=== PATIENT | female | born 1950 | race Caucasian/White ===

== ENCOUNTER → 2016-07-16 | Outpatient (CLI) | payer MEDICARE, OTHER ==
[~2016-07-16] MED LIST: ASPIRIN PO; CALCITONIN; CARAFATE PO; CLARITIN10 MG PO; MIRALAX255 GM PO; PREVACID PO; PULMICORT; REGLAN PO; SINGULAIR PO; [UNRECOGNIZED DRUG - OTHER]; [UNRECOGNIZED DRUG - OTHER]
== END | disposition home or self-care (01) ==
LOC: CHAZ 01:52
DX: R05 Cough (principal)
CPT/HCPCS: 87070; 87205

== ENCOUNTER → 2016-08-08 | Outpatient (CLI) | payer MEDICARE, OTHER | END | disposition home or self-care (01) | LOC: CSSDAY 09:19 | DX: M81.0 Age-related osteoporosis without current pathological fracture (principal) | CPT/HCPCS: 96372; J0897 ==

== ENCOUNTER → 2016-09-29 | Outpatient (CLI) | payer MEDICARE, OTHER ==
--- NOTE | ~2016-09-29 | US17 ---
[facility] A Service of [facility] RADIOLOGY TEXT RESULTS PATIENT: ANAI KNIGHT LOCATION: [facility] : 54 UNIT #: [id number] AGE: [address]: AIDE MARTINEZ SEX: F ORDER DR: [id number] [facility] [address] [place], [place] [address] [id number] O MR#: [id number] Acc #: [id number] NAME: ANAI KNIGHT : 1950 SEX: F STUDY DATE/TIME: 09/29/2016 13:28 UNIT: [facility] ROOM: STUDY DESCRIPTION: US Breast Bilateral Attending Physician: Aide Martinez Referring Physician: Aide Martinez Primary Care Physician: Alex Barriga Sr., M.D. MEDICAL IMAGING REPORT This report is preliminary unless electronic signature is present EXAM Bilateral screening breast ultrasound. DATE 09/29/2016 HISTORY 65-year-old female [place] resident. Screening bilateral ultrasound requested, as the patient is unable to cooperate for a standard mammogram. COMPARISON Bilateral screening breast ultrasound, 03/09/2014. FINDINGS Sample images were obtained of the clock face of each breast for dedicated whole breast screening ultrasound procedure. No documented palpable abnormalities. I was present for targeted interrogation of the 12 o'clock axis of the left breast, during which time a 4 mm simple cyst is seen directly adjacent to a mildly prominent subareolar duct in the 12 o'clock axis. However, no intraductal lesions are identified. No intraductal debris is seen. No suspicious solid mass lesion is identified within either breast. No gross architectural distortion or microcalcification is evident. IMPRESSION BIRADS 2. Benign findings. There is mild left breast retroareolar ductal prominence, but no intraductal abnormality is seen. Additionally, a simple cyst is seen in the 12 o'clock left breast measuring only 4 mm. No sonographic features suspicious for malignancy in either breast. Routine screening breast ultrasound may be obtained as deemed clinically [facility] A Service of [facility] RADIOLOGY TEXT RESULTS PATIENT: [facility]NA[facility] KNIGHT [id number] [birth year] UNIT #: [id number] AGE: [address]: AIDE MARTINEZ SEX: F ORDER DR: appropriate for this patient. BIRADS: 2 Benign finding. Dictated by... Fatuma Messina M.D. THIS IS AN ELECTRONICALLY VERIFIED REPORT Fatuma Messina M.D. at 09/30/2016 8:56 AM GEO/amado TD: 09/29/2016 18:23 JOB #: [id number] MEDICAL IMAGING REPORT Page 1 of 1 COPY
--- NOTE | ~2016-09-29 | US97 ---
[facility] A Service [facility] RADIOLOGY TEXT RESULTS PATIENT: ANAI KNIGHT LOCATION: [facility] : 54 UNIT #: [id number] AGE: [address]: AIDE MCCRAY SEX: F ORDER DR: [id number] [facility] [address] [place], [place] [address] [id number] O MR#: [id number] Acc #: [id number] NAME: ANAI KNIGHT : 1950 SEX: F STUDY DATE/TIME: 09/29/2016 13:43 UNIT: [facility] ROOM: STUDY DESCRIPTION: US Pelvic Duplex Limited Attending Physician: Aide Mccray Referring Physician: Kel Villanueva M.D. Ordering Physician: Kel Villanueva M.D. Primary Care Physician: Alex Barriga Sr., M.D. MEDICAL IMAGING REPORT This report is preliminary unless electronic signature is present EXAM Pelvic ultrasound. INDICATIONS Follow up uterine fibroid. PROCEDURE Lyon-scale, Doppler imaging of the pelvis via transabdominal approach. COMPARISON 04/19/2015 FINDINGS Uterus is anteverted. Endometrium measures 2 mm in thickness. Fullness in the area of the lower uterine segment, measures 3.1 x 2.4 x 2.8 cm. It is not significantly changed from the previous study. The appearance is very similar dating back to 2011. IMPRESSION Hypoechoic masslike region in the lower uterine segment is not significantly changed dating back to 2011, and favored to represent a benign fibroid. Dictated by... Ketan Waddell M.D. THIS IS AN ELECTRONICALLY VERIFIED REPORT Ketan Waddell M.D. at 10/06/2016 8:54 AM ISAAC/hugo TD: 09/30/2016 20:04 JOB #: [id number] [facility] A Service [facility] RADIOLOGY TEXT RESULTS PATIENT: ANAI KNIGHT LOCATION: [place] : 54 UNIT #: [id number] AGE: [address]: AIDE MCCRAY SEX: F ORDER DR: MEDICAL IMAGING REPORT Page 1 of 1 COPY
== END | disposition home or self-care (01) ==
LOC: CGUS 13:04
DX: Z12.39 Encounter for other screening for malignant neoplasm of breast (principal); D25.9 Leiomyoma of uterus, unspecified; R10.2 Pelvic and perineal pain; N60.02 Solitary cyst of left breast
CPT/HCPCS: 76641; 93976